=== PATIENT | male | born 1970 | race Caucasian/White ===

== ENCOUNTER 2017-02-16 17:33 | Emergency (ER) | payer OTHER, BC ==
[2017-02-16 17:34] VITALS: BMI 36.1
[2017-02-16 17:52] VITALS: BP 144/103; PULSE 86; RESP 18; TEMP 98.5; O2SAT 98
--- NOTE | 2017-02-16 18:45 | ED PDOC ---
HPI: Eye Injury/Pain Time Seen by Provider: 02/16/17 18:00 Chief Complaint (Nursing): ENT Problem Chief Complaint (Provider): FB left eye History Per: Patient History/Exam Limitations: no limitations Onset/Duration Of Symptoms: Hrs Current Symptoms Are (Timing): Still Present Injury To Eye?: No Additional Complaint(s): Pt states he was fixing a window and was no wearing protective glasses. Pt states he felt some thing fly into his eye and now he is having a FB sensation on the left. Past Medical History Reviewed: Historical Data, Nursing Documentation, Vital Signs Vital Signs: Last Vital Signs Temp 98.5 F 02/16/17 17:49 Pulse 86 02/16/17 17:49 Resp 18 02/16/17 17:49 BP 144/103 H 02/16/17 17:49 Pulse Ox 98 02/16/17 17:49 - Medical History PMH: Diabetes - Surgical History Surgical History: No Surg Hx - Family History Family History: States: Unknown Family Hx - Immunization History Hx Tetanus Toxoid Vaccination: No Hx Influenza Vaccination: No Hx Pneumococcal Vaccination: No - Home Medications Home Medications: Ambulatory Orders Medication Instructions Recorded Metformin Hydrochloride/Swapna 1 tab PO BID 08/24/15 [Janumet 1000 mg-50 mg] Naproxen 500 mg PO BID #20 tab 02/06/16 Polymyxin/Trimethoprim Sulfate 1 drop XX Q6H 10 Days 02/16/17 [Polytrim Ophth Soln] - Allergies Allergies/Adverse Reactions: Allergies Allergy/AdvReac Type Severity Reaction Status Date / Time No Known Allergies Allergy Verified 02/06/16 20:03 Review of Systems ROS Statement: Except As Marked, All Systems Reviewed And Found Negative Eyes: Positive for: Other (FB sensation, left ) Physical Exam - Reviewed Nursing Documentation Reviewed: Yes Vital Signs Reviewed: Yes - Physical Exam Appears: Positive for: Well, Non-toxic, No Acute Distress Head Exam: Positive for: ATRAUMATIC, NORMAL INSPECTION, NORMOCEPHALIC Skin: Positive for: Normal Color, Warm, DRY Eye Exam: Positive for: Normal appearance, EOMI, PERRL, Other ((+) FB, 4 o' clock border of cornea ) ENT: Positive for: Normal ENT Inspection Neck: Positive for: Normal, Painless ROM Respiratory: Negative for: Accessory Muscle Use Back: Positive for: Normal Inspection Extremity: Positive for: Normal ROM Neurologic/Psych: Positive for: Alert, Oriented - ECG O2 Sat by Pulse Oximetry: 98 Medical Decision Making Medical Decision Making: FB removed with q-tip. Eye irrigated. Disposition - Clinical Impression Clinical Impression: Foreign body, eye - Disposition Disposition: Routine/Home Disposition Time: 18:59 Condition: STABLE Prescriptions: Polymyxin/Trimethoprim Sulfate [Polytrim Ophth Soln] 1 drop XX Q6H 10 Days Instructions: Eye Foreign Body (ED)
== END 2017-02-16 18:50 | disposition home or self-care (01) ==
LOC: H.ER 17:33
DX: T15.02XA Foreign body in cornea, left eye, initial encounter (principal); Y99.0 Civilian activity done for income or pay